=== PATIENT | male | born 1965 | race Caucasian/White ===

== ENCOUNTER 2023-05-02 14:43 | Emergency (ER) | payer MEDICAID, OTHER ==
[~2023-05-02] VITALS: Ht 167.6 cm; Wt 106.0 kg
[~2023-05-02 14:43] MED LIST: ATOR-2 PO; BUME2TAB7 PO; CLOP-31 PO; COR6 PO; DAPA10TA PO; GABA-529 PO; LOSA25TA26 MT; NITR0.4T49 SL; POTA-205 PO; SPIR25TA6 PO
[2023-05-02 14:56] VITALS: BP 97/74; RESP 18; TEMP 99; O2SAT 99
[2023-05-02 15:01] VITALS: PULSE 90
[2023-05-02] MEDS ORDERED: ASPIRIN 81MG TABLET PO SCH (15:30)
[2023-05-02] MEDS ORDERED: BUMETANIDE 1MG/4ML VIAL IV SCH (15:30)
[2023-05-02] MEDS ORDERED: SPIRONOLACTONE 25MG TABLET PO SCH (15:30)
[2023-05-02] MEDS ORDERED: POTASSIUM CHLORIDE 20MEQ TABLET SR PO NR (15:45)
[2023-05-02 15:58] LABS: BASOPHILS % 0.5 % (0.0-2.0); DIFFERENTIAL COMMENT 1; EOSINOPHILS % 2.1 % (0.0-5.0); HEMATOCRIT. 31.8 % (42.0-52.0); HEMOGLOBIN. 10.3 g/dL (14.0-18.0); LYMPHOCYTES % 18.9 % (20.0-50.0); MEAN CORPUSCULAR HEMOGLOBIN 25.6 pg (28.0-32.0); MEAN CORPUSCULAR HGB CONC 32.3 g/dL (31.0-37.0); MEAN CORPUSCULAR VOLUME 79.4 fL (80.0-94.0); MEAN PLATELET VOLUME 6.9 fl (7.4-10.4); MONOCYTES % 10.2 % (2.0-8.0); NEUTROPHILS % 68.3 % (40.0-76.0); PLATELET 289 x1000/uL (130-400); RED BLOOD CELL COUNT 4.01 mill/uL (4.7-6.1); RED CELL DISTRIBUTION WIDTH 22.2 % (11.6-14.6); WHITE BLOOD COUNT 6.4 x1000/uL (4.5-11.0)
[2023-05-02 15:59] LABS: ADD RBC MORPHOLOGY YES
[2023-05-02 16:11] LABS: ALANINE AMINOTRANSFERASE 7 IU/L (10-49); ASPARTATE AMINOTRANSFERASE 18 IU/L (<34); BILIRUBIN TOTAL 0.4 mg/dL (0.1-1.0); CALCIUM 8.9 mg/dL (8.7-10.4); CARBON DIOXIDE 32 mEq/L (21-32); CHLORIDE 96 mEq/L (98-107); GLUCOSE 144 mg/dL (70-105); PROTEIN TOTAL 8.1 g/dL (6.0-8.3); SODIUM 134 mEq/L (136-145); TROPONIN I HIGH SENSITIVITY 26 ng/L (3.0-53); UREA NITROGEN BLOOD 31 mg/dL (9-23)
[2023-05-02 16:13] LABS: CREATININE 1.9 mg/dL (0.6-1.3)
[2023-05-02 16:16] LABS: ANISOCYTOSIS 2+; MICROCYTOSIS 1+; PLATELET ESTIMATE NORMAL
[2023-05-02] MEDS ORDERED: ATORVASTATIN CALCIUM 20MG TABLET PO SCH (21:00)
[2023-05-02] MEDS ORDERED: CARVEDILOL 3.125 MG TABLET PO SCH (21:00)
== END 2023-05-02 23:13 | disposition left against medical advice (07) ==
LOC: ER 14:43 → EDBEDREQ 20:05 → EDBEDREQTM 20:05 → ER 23:13
DX: I50.9 Heart failure, unspecified (principal); I11.0 Hypertensive heart disease with heart failure; E11.9 Type 2 diabetes mellitus without complications; I25.2 Old myocardial infarction; Z88.0 Allergy status to penicillin; Z98.890 Other specified postprocedural states
CPT/HCPCS: 36415; 71045; 80053; 83880; 84484; 85025; 93005; 99291